=== PATIENT | male | born 1960 | race American Indian/Alaskan Native ===

== ENCOUNTER 2021-01-24 15:39 | Emergency (ER) | payer BC ==
[2021-01-24 15:43] VITALS: BP 196/98
[2021-01-24 17:20] LABS: Alanine Aminotransferase 24 units/L (7-56); Albumin 4.2 g/dL (3.9-5); BUN/Creatinine Ratio 13; Blood Urea Nitrogen 14 mg/dL (9-20); Calcium 9.2 mg/dL (8.4-10.2); Hemolysis Index 12
[2021-01-24 17:30] LABS: Basophils % (Auto) 1.1 % (0.0-1.8); Eosinophils % (Auto) 1.1 % (0.0-4.3); Hematocrit 42.2 % (35.5-45.6); Hemoglobin 14.4 gm/dl (11.8-15.2); Lymphocytes % (Auto) 25.3 % (13.4-35.0); Mean Corpuscular HGB Conc 34 % (32-34); Mean Corpuscular Volume 97 fl (84-94); Monocytes # (Auto) 0.3 K/mm3 (0.0-0.8); Monocytes % (Auto) 8.8 % (0.0-7.3); Platelet Count 203 K/mm3 (140-440); Red Blood Count 4.37 M/mm3 (3.65-5.03); Red Cell Distribution Width 13.8 % (13.2-15.2)
--- NOTE | 2021-01-25 10:10 | Electrocardiograph Report ---
[facility] [place] Test Date: 2021-01-24 Test Time: 15:45:06 Pat Name: CALEB DIANA Department: Room: Gender: M Information Systems Operator: BONIFACIO ZACARIASB: 1960 Requested By: LOAN PABLO Order Number: [id number] Reading MD: Mateusz García Measurements Intervals [place] Rate: 50 P: 60 ME: 195 QRS: -12 QRSD: 101 T: -35 QT: 456 QTc: 416 Interpretive Statements Sinus bradycardia Nonspecific T abnormalities, inferior leads No previous ECG available for comparison Electronically Signed On 01-25-2021 10:10:48 EDT by Mateusz García
== END 2021-01-24 22:00 | disposition left against medical advice (07) ==
LOC: ED 15:39
DX: R00.1 Bradycardia, unspecified (principal); Z53.21 Procedure and treatment not carried out due to patient leaving prior to being seen by health care provider
CPT/HCPCS: 36415; 80053; 85025; 93005